=== PATIENT | male | born 1995 | race Caucasian/White ===

== ENCOUNTER 2018-08-07 03:16 | Inpatient (IN) ==
[2018-08-07] MEDS ORDERED: Sod Chloride 0.9% Inj 1,000 ML IV.SIG SCH (03:45)
[2018-08-07 04:31] LABS: Baso # (Auto) 0.1 th/mm3 (0.0-0.2); Baso % (Auto) 0.7 % (0.0-2.0); Eos # (Auto) 0.1 th/mm3 (0.0-0.4); Eos % (Auto) 1.7 % (0.0-4.0); Hematocrit 48.7 % (39.0-51.0); Hemoglobin 16.5 gm/dL (13.0-17.0); Lymph # (Auto) 2.8 th/mm3 (1.0-4.8); Lymph % (Auto) 34.9 % (9.0-44.0); Mean Corpuscular HGB Conc 33.9 % (32.0-36.0); Mean Corpuscular Hemoglobin 27.9 pg (27.0-34.0); Mean Corpuscular Volume 82.4 fL (80.0-100.0); Mono # (Auto) 0.6 th/mm3 (0.0-0.9); Mono % (Auto) 7.2 % (0.0-8.0); Neut # (Auto) 4.4 th/mm3 (1.8-7.7); Neut % (Auto) 55.5 % (16.0-70.0); Platelet Count 262 th/mm3 (150-450); Red Blood Count 5.91 mil/mm3 (4.50-5.90); Red Cell Distribution Width 13.5 % (11.6-17.2)
--- NOTE | 2018-08-07 04:49 | ED ---
HPI General Chief complaint: Alcohol Stated complaint: Syncope Time Seen by Provider: 08/07/18 03:31 Source: EMS Mode of arrival: EMS Limitations: altered mental status History of Present Illness HPI narrative: 22-year-old male came to the emergency room brought in by EMS after he was noticed to be unresponsive in the car by his family. Patient was drinking earlier alcohol. When EMS arrived his GCS was 3. When patient was being transported he started to wake up and answering questions. Upon arrival GCS was 14. Patient started to vomit upon arrival and apologized to the nurse multiple times. Patient has not spoken much to me. The family including his mother arrived later and mentioned that patient had broken up with his girlfriend 2 weeks back. He has history of mitral valve prolapse as per the family. Related Data Home Medications Medication Instructions Recorded Confirmed No Known Home Medications 08/07/18 08/07/18 Allergies Allergy/AdvReac Type Severity Reaction Status Date / Time No Known Allergies Allergy Abdominal Uncoded 08/07/18 03:30 Pain Review of Systems ROS Unobtainable ROS Unobtainable: unobtainable due to mental status [facility] Medical History Medical History Patient denies medical problems (Acute) Surgical History Surgical History S/P heart valve repair (Acute) Social History Social History Smoking Status: Current some day smoker Tobacco Type: Cigarettes How Often Do You Have a Drink Containing Alcohol: 2 to 4 times a month Recent Travel in [facility] within the Last 8 Weeks: No Recent Out of Country Travel within the Last 8 Weeks: No Immunization History Tetanus Immunization: Unsure Exam Narrative Exam Narrative: GENERAL: Intoxicated, opens his eyes upon calling his name but none communicating SKIN: Focused skin assessment warm/dry. HEAD: Atraumatic. Normocephalic. EYES: Pupils equal and round. No scleral icterus. No injection or drainage. ENT: No nasal bleeding or discharge. Mucous membranes pink and moist. NECK: Trachea midline. No JVD. CARDIOVASCULAR: Regular rate and rhythm. No murmur appreciated. RESPIRATORY: No accessory muscle use. Clear to auscultation. Breath sounds equal bilaterally. GASTROINTESTINAL: Abdomen soft, non-tender, nondistended. Hepatic and splenic margins not palpable. MUSCULOSKELETAL: No obvious deformities. No clubbing. No cyanosis. No edema. NEUROLOGICAL: GCS of 13. No obvious cranial nerve deficits. Motor grossly within normal limits. Not communicating currently PSYCHIATRIC: Unable to assess Course Consultations Consultation #1: dr meredith agrees to admit Initial Documented Vital Signs Temperature 98.5 F 08/07/18 03:23 Pulse Rate 78 08/07/18 03:23 Respiratory Rate 26 H 08/07/18 03:23 Blood Pressure 146/101 H 08/07/18 03:23 Pulse Oximetry 100 08/07/18 03:23 Last Documented Vital Signs Temperature 98.5 F 08/07/18 03:23 Pulse Rate 78 08/07/18 03:23 Respiratory Rate 26 H 08/07/18 03:23 Blood Pressure 146/101 H 08/07/18 03:23 Pulse Oximetry 100 08/07/18 03:23 Sign Out Sign Out Data: Patient Sign Out occurred on 08/07/18 at 07:44. Patient's care was discussed, and care was transferred from Karan Daniels to Merna Purvis MD. Sign Out Comment: Alcohol intoxication, initial GCS of 3 when found, follow-up troponin. If troponin is negative patient can be discharged after reassessed. Last updated by Karan Daniels MD at 08/07/18 07:38 Post-Handoff Eval: Signed over to me to follow troponin and reevaluate. Troponin is elevated at 0.09. Patient denies any active chest pain currently but states he was having some a month ago. Here he was having occasional PVCs. He denies any medical history to me and agrees to observation overnight for trending of troponins. Medical Decision Making MDM Narrative Medical decision making narrative: 4:48 AM awaiting for blood test result. Patient is getting IV fluid bolus and Narcan for nausea and vomiting. There are several sober family members and friends present. Awaiting for the alcohol level. 6:42 AM blood test results are significant for alcohol intoxication and hypokalemia. P.o. potassium replacement has been given. Head CT is negative. I was told by the nurse that patient is awake and standing up to urinate. I am comfortable discharging him home at this point given the fact there is sober family member to take him home. 7:32 AM awaiting for troponin result. Case has been signed over to the oncoming ER physician. Medical Screen Exam Complete: Yes Emergency Medical Condition: Yes Lab Data Result diagrams: 08/07/18 03:30 08/07/18 03:30 Lab Results 08/07/18 08/07/18 08/07/18 Range/Units 03:30 03:30 03:30 WBC 8.0 (4.0-11.0) th/mm3 RBC 5.91 H (4.50-5.90) mil/mm3 Hgb 16.5 (13.0-17.0) gm/dL Hct 48.7 (39.0-51.0) % MCV 82.4 (80.0-100.0) fL MCH 27.9 (27.0-34.0) pg MCHC 33.9 (32.0-36.0) % RDW 13.5 (11.6-17.2) % Plt Count 262 (150-450) th/mm3 MPV 9.0 (7.0-11.0) fL Neut % (Auto) 55.5 (16.0-70.0) % Lymph % (Auto) 34.9 (9.0-44.0) % Juncos % (Auto) 7.2 (0.0-8.0) % Eos % (Auto) 1.7 (0.0-4.0) % Baso % (Auto) 0.7 (0.0-2.0) % Neut # (Auto) 4.4 (1.8-7.7) th/mm3 Lymph # (Auto) 2.8 (1.0-4.8) th/mm3 Juncos # (Auto) 0.6 (0.0-0.9) th/mm3 Eos # (Auto) 0.1 (0.0-0.4) th/mm3 Baso # (Auto) 0.1 (0.0-0.2) th/mm3 WBC Differential . Differential Comment Auto diff final Sodium 140 (136-145) meq/L Potassium 3.0 L (3.5-5.1) meq/L Chloride 105 (98-107) meq/L Carbon Dioxide 25.4 (21.0-32.0) meq/L Anion Gap 10 (5-15) meq/L BUN 12 (7-18) mg/dL Creatinine 1.20 (0.60-1.30) mg/dL Estimated GFR Greater than 89 (>89) mL/min Random Glucose 102 (74-106) mg/dL Calcium 8.6 (8.5-10.1) mg/dL Total Bilirubin 0.5 (0.2-1.0) mg/dL AST 20 (15-37) U/L ALT 32 (12-78) U/L Alkaline Phosphatase 41 L (45-117) U/L Troponin I 0.09 H (0.02-0.05) ng/mL Total Protein 8.8 H (6.4-8.2) g/dL Albumin 4.4 (3.4-5.0) g/dL Urine Opiates Screen (Neg) Ur Barbiturates Screen (Neg) Ur Amphetamines Screen (Neg) U Benzodiazepines Scrn (Neg) Urine Cocaine Screen (Neg) U Cannabinoids Screen (Neg) Serum Alcohol 190 H (0-5) mg/dL 08/07/18 Range/Units 06:42 WBC (4.0-11.0) th/mm3 RBC (4.50-5.90) mil/mm3 Hgb (13.0-17.0) gm/dL Hct (39.0-51.0) % MCV (80.0-100.0) fL MCH (27.0-34.0) pg MCHC (32.0-36.0) % RDW (11.6-17.2) % Plt Count (150-450) th/mm3 MPV (7.0-11.0) fL Neut % (Auto) (16.0-70.0) % Lymph % (Auto) (9.0-44.0) % Juncos % (Auto) (0.0-8.0) % Eos % (Auto) (0.0-4.0) % Baso % (Auto) (0.0-2.0) % Neut # (Auto) (1.8-7.7) th/mm3 Lymph # (Auto) (1.0-4.8) th/mm3 Juncos # (Auto) (0.0-0.9) th/mm3 Eos # (Auto) (0.0-0.4) th/mm3 Baso # (Auto) (0.0-0.2) th/mm3 WBC Differential Differential Comment Sodium (136-145) meq/L Potassium (3.5-5.1) meq/L Chloride (98-107) meq/L Carbon Dioxide (21.0-32.0) meq/L Anion Gap (5-15) meq/L BUN (7-18) mg/dL Creatinine (0.60-1.30) mg/dL Estimated GFR (>89) mL/min Random Glucose (74-106) mg/dL Calcium (8.5-10.1) mg/dL Total Bilirubin (0.2-1.0) mg/dL AST (15-37) U/L ALT (12-78) U/L Alkaline Phosphatase (45-117) U/L Troponin I (0.02-0.05) ng/mL Total Protein (6.4-8.2) g/dL Albumin (3.4-5.0) g/dL Urine Opiates Screen Neg (Neg) Ur Barbiturates Screen Neg (Neg) Ur Amphetamines Screen Neg (Neg) U Benzodiazepines Scrn Neg (Neg) Urine Cocaine Screen Neg (Neg) U Cannabinoids Screen Neg (Neg) Serum Alcohol (0-5) mg/dL Imaging Data Radiologist's impression: Head CT 08/07/18 05:38 CONCLUSION: Negative CT Head non contrast. . . ECG Data Attestation: I personally reviewed and interpreted this ECG as follows: Interpretation: Twelve-lead EKG was reviewed by me. Normal sinus rhythm, normal axis, frequent PVCs, J-point elevation. Discharge Plan Discharge Disposition Patient Disposition: ED Admit(ED Internal Use Only) Discharge Condition Condition: Stable Discharge Order Discharge Orders: ED Use Only Admit Order (Routine); Ordered 08/07/18 Ordered By: Merna Purvis Discharge Details Diagnosis: Alcoholic intoxication, Asymptomatic PVCs, Elevated troponin Physicians Team ED Provider: Merna Purvis Primary Care Provider: UNKNOWN, Rxs /Orders / Referrals /Forms Prescriptions: No Action No Known Home Medications RF: 0 Stand Alone Forms: Work Release/Restrictions Discharge Instructions Patient Printed Instructions: Alcohol Intoxication (ED) Status ED Status: Admitted Observation Patient
[2018-08-07 05:24] LABS: Alanine Aminotransferase 32 U/L (12-78); Albumin 4.4 g/dL (3.4-5.0); Anion Gap 10 meq/L (5-15); Aspartate Aminotransferase 20 U/L (15-37); Blood Urea Nitrogen 12 mg/dL (7-18); Calcium 8.6 mg/dL (8.5-10.1); Carbon Dioxide 25.4 meq/L (21.0-32.0); Chloride 105 meq/L (98-107); Glomerular Filtration Rate Greater Than 89 mL/min (>89); Glucose,Random 102 mg/dL (74-106); Sodium 140 meq/L (136-145)
[2018-08-07 05:26] LABS: Alcohol 190 mg/dL (0-5); Alkaline Phosphatase 41 U/L (45-117); Total Protein 8.8 g/dL (6.4-8.2)
--- NOTE | 2018-08-07 06:09 | CT ---
EXAM DATE: 08/07/2018 5:56 AM EST AGE/SEX: 22 years / Male INDICATIONS: Altered mental status. ETOH CLINICAL DATA: This is the patient's initial encounter. Patient reports that signs and symptoms have been present for 1 day and indicates a pain score of Nonresponsive. MEDICAL/SURGICAL HISTORY: None. None. RADIATION DOSE: 56.35 CTDI (mGy) COMPARISON: No prior exams available for comparison. TECHNIQUE: CT of the head without contrast. Using automated exposure control and adjustment of the mA and/or kV according to patient size, radiation dose was kept as low as reasonably achievable to ob tain optimal diagnostic quality images. DICOM format image data is available electronically for revi ew and comparison. FINDINGS: Cerebrum: The ventricles are normal for age. No evidence of midline shift, mass lesion, hemorrhage or acute infarction. No extraaxial fluid collections are seen. Posterior Fossa: The cerebellum and brainstem are intact. The 4th ventricle is midline. The cerebe llopontine angle is unremarkable. Extracranial: The visualized portion of the orbits is intact. Skull: The calvaria is intact. No evidence of skull fracture. CONCLUSION: Negative CT Head non contrast. . . Electronically signed by: Luke Diaz MD Board Certified Radiologist 08/07/2018 6:07 AM EST
[2018-08-07 07:28] LABS: Amphetamine Screen,Urine Neg (Neg); Barbiturate Screen,Urine Neg (Neg); Cannabinoid Screen,Urine Neg (Neg); Cocaine Screen,Urine Neg (Neg)
[2018-08-07 07:33] LABS: Opiate Screen,Urine Neg (Neg)
[2018-08-07] MEDS ORDERED: Haloperidol Inj 5 MG/ML Ampul IV.PUSH PRN (08:14)
[2018-08-07] MEDS ORDERED: LORazepam 1 MG Tablet PO PRN (08:14)
[2018-08-07] MEDS ORDERED: Bisacodyl 10 MG Supp RECTAL PRN (08:15)
[2018-08-07] MEDS ORDERED: Acetaminophen 325 MG Tablet PO PRN (08:15)
[2018-08-07] MEDS ORDERED: Magnesium Oxide 400 MG Tablet PO ONE (08:19)
--- NOTE | 2018-08-07 09:31 | ECG ---
Date Performed: 08/07/2018 Time Performed: 03:21:53 PTAGE: 22 years EKG: Sinus rhythm WITH FREQUENT VENTRICULAR PREMATURE COMPLEXES MINIMAL VOLTAGE CRITERIA FOR LVH, CONSIDER NORMAL VARI ANT ST ELEVATION CONSISTENT WITH INJURY, PERICARDITIS, OR EARLY REPOLARIZATION ABNORMAL ECG NO PREVIOUS TRACING DOCTOR: Florin Roger Interpretating Date/Time 08/07/2018 09:30:06
[2018-08-07] MEDS: KCL 20 mEq/D5W/NaCl 0.45% Inj 1,000 ML IV.CONT SCH ×3 (09:37→20:21)
[2018-08-07] MEDS: Folic Acid 1 MG Tablet PO SCH (09:38)
[2018-08-07] MEDS: Senna/Docusate Sodium 8.6/50 MG Tablet PO SCH ×2 (09:38→20:22)
[2018-08-07] MEDS: Enoxaparin Inj 40 MG/0.4 ML Syringe SQ SCH (09:38)
--- NOTE | 2018-08-07 10:36 | MB ---
cc: Bernardo Marsh MD DATE: 08/07/2018 REASON FOR CONSULTATION: Chest pain, abnormal troponin level. HISTORY OF PRESENT ILLNESS: The patient is a 22-year-old black male originally from [facility] with no major past medical history who was brought in by emergency services after he was found to be unresponsive in his car by his family. The patient had admitted to drinking alcohol earlier in the day. Troponin level was checked and found to be slightly abnormal. For the past 3-4 years, the patient states he has had occasional substernal chest pain described as "sharp," never lasting more than 1-2 seconds, without associated shortness of breath, nausea, or diaphoresis. The last episode of chest pain was a month ago. He denies pleurisy, pedal edema, palpitations, lightheadedness, syncope, near syncope, fevers, recent flu symptoms, paroxysmal nocturnal dyspnea. PAST MEDICAL HISTORY: None. PAST SURGICAL HISTORY: NONE. CARDIAC MEDICATIONS AT HOME: None. FAMILY HISTORY: There is no significant family history of early myocardial infarction. SOCIAL HISTORY: The patient smokes a little less than a pack of cigarettes per day. He drinks alcohol occasionally. He denies illicit drug abuse. REVIEW OF SYSTEMS: As in the history of present illness, otherwise negative or noncontributory. He also denies headache, abdominal pain, melena, dyspepsia, bright red blood per rectum. PHYSICAL EXAMINATION: VITAL SIGNS: His blood pressure 124/62 with a pulse of 67, respirations 17. GENERAL: He is a well-developed, well-nourished, black male, in no acute distress. NECK: Jugular venous pressure is normal. Carotid pulses are 2+ bilaterally and without bruits. CHEST: Clear lungs martinez. CARDIAC: He has a regular rhythm and rate without S3, S4, murmur, or rub. ABDOMEN: He has a soft, nontender abdomen. Bowel sounds are present. There is no definite hepatosplenomegaly. EXTREMITIES: No clubbing, cyanosis, or edema. DIAGNOSTIC DATA: EKG shows normal sinus rhythm with occasional PVC, ST abnormality, consider early repolarization. LABORATORY DATA: Includes normal CBC. Troponin 0.09, BUN 12, creatinine 1.20, potassium 3.0. IMPRESSION: Minimally abnormal troponin level, exceedingly atypical chest pains chronically in this 22-year-old black male with no major past medical history. EKG shows ST changes suggestive of early repolarization. The patient's symptoms have been ongoing for 4 years. In fact, he states his last episode of chest pain was 1 month ago. Clinical suspicion for pulmonary embolism is low. Except for tobacco abuse, he has no major risk factors for coronary disease. RECOMMENDATIONS: Given the exceedingly atypical nature of his chronic infrequent chest pains, recommend no additional cardiac workup at this time. MD MARYJO Pino/ts , 10:02 AM , 10:10 AM MTDEllis
--- NOTE | 2018-08-07 12:54 | ECG ---
Date Performed: 08/07/2018 Time Performed: 10:42:45 PTAGE: 22 years EKG: Sinus rhythm WITH OCCASIONAL VENTRICULAR PREMATURE COMPLEXES POSSIBLE RIGHT VENTRICULAR CONDUCTION DELAY Mild non specific ST elevation possibly representing early repolarization. BORDERLINE ECG No significant gresham e from prior electrocardiogram. DOCTOR: Florin Roger Interpretating Date/Time 08/07/2018 12:52:30
--- NOTE | 2018-08-07 13:35 | P.HPIM ---
History of Present Illness Primary Care Physician: UNKNOWN Chief Complaint: chest pain History of Present Illness: 22-year-old male with PMH of MVP came to the emergency room brought in by EMS after he was noticed to be unresponsive in the car by his family. Patient was drinking earlier alcohol. When EMS arrived his GCS was 3. When patient was being transported he started to wake up and answering questions. Upon arrival GCS was 14. Patient started to vomit upon arrival and apologized to the nurse multiple times. The family arrived later and mentioned that patient had broken up with his girlfriend 2 weeks back. He has history of mitral valve prolapse. The patient says he feels much better after he received meds in the ED. Trops noted elevated trend trops, cardiology consulted. The patient says he has intermittent chest pains, associated sob. No n/v/d/c. No tremors. No abd pain. Does not remember having ECHO done. Patient was counselled extensively regarding EtOH use. Review of Systems Review of Systems: all other systems reviewed are negative [facility] Medical History Medical History Mitral valve prolapse (Acute) Patient denies medical problems (Acute) Surgical History Surgical History S/P heart valve repair (Acute) Social History Social History Smoking Status: Current some day smoker Tobacco Type: Cigarettes How Often Do You Have a Drink Containing Alcohol: 2 to 4 times a month Recent Travel in [facility] within the Last 8 Weeks: No Recent Out of Country Travel within the Last 8 Weeks: No Immunization History Tetanus Immunization: Unsure Medications and Allergies Allergies Allergy/AdvReac Type Severity Reaction Status Date / Time No Known Allergies Allergy Abdominal Uncoded 08/07/18 03:30 Pain Home Medications Medication Instructions Recorded Confirmed Type No Known Home Medications 08/07/18 08/07/18 History Active Medications: Active Medications Acetaminophen (Tylenol) 650 mg PO Q4H PRN PRN Reason: Temp > 100.4 Al Hydroxide/Mg Hydroxide (Milk Of Magnesia Liq) 30 ml PO Q12H PRN PRN Reason: Mild Constipation Bisacodyl (Dulcolax Supp) 10 mg RECTAL DAILY PRN PRN Reason: SEVERE CONSITIPATION Enoxaparin Sodium (Lovenox Inj) 40 mg SQ Q24H [facility] Last Admin: 08/07/18 09:38 Dose: 40 mg Flumazenil (Romazicon Inj) 0.2 mg IV.PUSH Q1M PRN PRN Reason: OVERSEDATION Folic Acid (Folic Acid) 1 mg PO DAILY [facility] Last Admin: 08/07/18 09:38 Dose: 1 mg Haloperidol Lactate (Haldol Inj) 1 mg IV.PUSH Q15M PRN PRN Reason: for severe agitation Potassium Chloride/Dextrose/Sod Cl (D5w/1/2ns + Kcl 20 Meq Inj) 1,000 mls @ 100 mls/hr IV.CONT .Q10H [facility] Last Admin: 08/07/18 09:37 Dose: 100 mls/hr Lactulose (Lactulose Liq) 30 ml PO DAILY PRN PRN Reason: SEVERE CONSITIPATION Lorazepam (Ativan) 1 mg PO Q4H PRN PRN Reason: for CIWA 8-10 Lorazepam (Ativan) 2 mg PO Q2H PRN PRN Reason: for CIWA 11-14 Lorazepam (Ativan Inj) 2 mg IV.PUSH Q2H PRN PRN Reason: for CIWA 11-14 Lorazepam (Ativan Inj) 2 mg IV.PUSH Q1H PRN PRN Reason: for CIWA 15-20 Lorazepam (Ativan Inj) 2 mg IV.PUSH Q15M PRN PRN Reason: for CIWA > 20 Lorazepam (Ativan Inj) 1 mg IV.PUSH Q4H PRN PRN Reason: for CIWA 8-10 Ondansetron HCl (Zofran Inj) 4 mg IV.PUSH Q6H PRN PRN Reason: NAUSEA OR VOMITING Senna/Docusate Sodium (Lore-Colace) 1 tab PO BID [facility] Last Admin: 08/07/18 09:38 Dose: 1 tab Sennosides (Senokot) 17.2 mg PO Q12H PRN PRN Reason: Moderate Constipation Sodium Chloride (Ns Flush) 2 ml IV.FLUSH BID [facility] Last Admin: 08/07/18 09:38 Dose: 2 ml Sodium Chloride (Ns Flush) 2 ml IV.FLUSH PRN PRN PRN Reason: FLUSH AFTER USING IV ACCESS Thiamine HCl (Vitamin B1) 100 mg PO BID [facility] Last Admin: 08/07/18 09:38 Dose: 100 mg Physical Exam Vital signs: Vital Signs 08/07/18 03:23 08/07/18 07:29 08/07/18 08:15 Temperature 98.5 F Pulse Rate 78 65 67 Respiratory Rate 26 H 18 17 Blood Pressure 146/101 H 121/67 124/62 Pulse Oximetry 100 98 95 Intake & Output 08/06/18 08/07/18 08/07/18 18:59 06:59 18:59 Intake Total 1000 / 1000 Balance 1000 / 1000 Weight 80 kg Intake: IV 1000 / 1000 NS Inj 1,000 ML @ 1000 mls/hr 1000 / 1000 IV.SIG BOLUS FUNMILAYO Rx#:[id number] Results Labs CBC & Chem 7: 08/07/18 03:30 08/07/18 03:[address] 08/07/18 05:38 CONCLUSION: Negative CT Head non contrast. . . Caprini VTE Risk Assessment Caprini VTE Risk Assessment: Moderate/High Risk (score >= 2) Caprini Risk Assessment Model: Point Value = 1 Point Value = 2 Point Value = 3 Point Value = 5 Age 41-60 Minor surgery BMI > 25 kg/m2 Swollen legs Varicose veins or History of unexplained or recurrent spontaneous Oral contraceptives or hormone replacement Sepsis (< 1 month) Serious lung disease, including pneumonia (< 1 month) Abnormal pulmonary function Acute myocardial infarction Congestive heart failure (< 1 month) History of inflammatory bowel disease Medical patient at bed rest Age 61-74 Arthroscopic surgery Major open surgery (> 45 min) Laparoscopic surgery (> 45 min) Malignancy Confined to bed (> 72 hours) Immobilizing plaster cast Central venous access Age >= 75 History of VTE Family history of VTE Factor V Leiden Prothrombin [id number] Lupus anticoagulant Anticardiolipin antibodies Elevated serum homocysteine Heparin-induced thrombocytopenia Other congenital or acquired thrombophilia Stroke (< 1 month) Elective arthroplasty Hip, pelvis, or leg fracture Acute spinal cord injury (< 1 month) Prophylaxis Regimen: Total Risk Factor Score Risk Level Prophylaxis Regimen 0-1 Low Early ambulation 2 Moderate Order ONE of the following: *Sequential Compression Device (SCD) *Heparin 5000 units SQ BID 3-4 Higher Order ONE of the following medications: *Heparin 5000 units SQ TID *Enoxaparin/Lovenox 40 mg SQ daily (WT < 150 kg, CrCl > 30 mL/min) *Enoxaparin/Lovenox 30 mg SQ daily (WT < 150 kg, CrCl > 10-29 mL/min) *Enoxaparin/Lovenox 30 mg SQ BID (WT < 150 kg, CrCl > 30 mL/min) AND/OR *Sequential Compression Device (SCD) 5 or more Highest Order ONE of the following medications: *Heparin 5000 units SQ TID (Preferred with Epidurals) *Enoxaparin/Lovenox 40 mg SQ daily (WT < 150 kg, CrCl > 30 mL/min) *Enoxaparin/Lovenox 30 mg SQ daily (WT < 150 kg, CrCl > 10-29 mL/min) *Enoxaparin/Lovenox 30 mg SQ BID (WT < 150 kg, CrCl > 30 mL/min) AND *Sequential Compression Device (SCD) Assessment and Plan Plan Pleasant 22-year-old male with past medical history of mitral valve prolapse complaints of chest pain. He was brought by EMS after he was noticed to be unresponsive in the car by his family. Chest pain Elevated troponins Abnormal EKG History of mitral valve prolapse Found unresponsive EtOH abuse with withdrawals Trend troponins, trending down. EKG also noted up normal with multiple PVCs. Cardiology is consulted 2D echo Placed on telemetry Started on CIWA protocol The patient was counseled extensively regarding alcohol use, patient expressed understanding DVT prophylaxis Lovenox Discussed Condition With: Patient, family at bedside, nurse, ED physician
--- NOTE | 2018-08-07 21:32 | ECG ---
Date Performed: 08/07/2018 Time Performed: 16:26:45 PTAGE: 22 years EKG: Sinus rhythm WITH OCCASIONAL VENTRICULAR PREMATURE COMPLEXES Mild diffuse ST elevation which is slightly more pro minent than prior EKG. Clinical correlation suggested. BORDERLINE ECG PREVIOUS TRACING : 08/07/2018 10.42 DOCTOR: Florin Roger Interpretating Date/Time 08/07/2018 21:30:29
[2018-08-08] MEDS: KCL 20 mEq/D5W/NaCl 0.45% Inj 1,000 ML IV.CONT SCH (06:08)
[2018-08-08 09:06] VITALS: RESP 16
[2018-08-08 09:10] LABS: Baso % (Auto) 0.8 % (0.0-2.0); Eos # (Auto) 0.1 th/mm3 (0.0-0.4); Eos % (Auto) 2.2 % (0.0-4.0); Hematocrit 44.2 % (39.0-51.0); Lymph # (Auto) 2.1 th/mm3 (1.0-4.8); Lymph % (Auto) 35.4 % (9.0-44.0); Mean Corpuscular Hemoglobin 27.8 pg (27.0-34.0); Mean Corpuscular Volume 81.9 fL (80.0-100.0); Mean Platelet Volume 8.7 fL (7.0-11.0); Mono # (Auto) 0.4 th/mm3 (0.0-0.9); Mono % (Auto) 7.4 % (0.0-8.0); Neut # (Auto) 3.2 th/mm3 (1.8-7.7); Neut % (Auto) 54.2 % (16.0-70.0); Platelet Count 220 th/mm3 (150-450); Red Blood Count 5.39 mil/mm3 (4.50-5.90); Red Cell Distribution Width 13.4 % (11.6-17.2); White Blood Count 5.9 th/mm3 (4.0-11.0)
[2018-08-08] MEDS: Senna/Docusate Sodium 8.6/50 MG Tablet PO SCH (09:23)
[2018-08-08] MEDS: Enoxaparin Inj 40 MG/0.4 ML Syringe SQ SCH (09:24)
[2018-08-08] MEDS: Folic Acid 1 MG Tablet PO SCH (09:24)
[2018-08-08 09:31] LABS: Calcium 8.3 mg/dL (8.5-10.1); Carbon Dioxide 26.8 meq/L (21.0-32.0); Potassium 3.6 meq/L (3.5-5.1)
--- NOTE | 2018-08-08 12:30 | ECHRPT ---
Indication: CHEST PAIN CONCLUSIONS Normal left ventricular size. Mild concentric left ventricular hypertrophy. The left ventricular systolic function is hyperdynamic with an estimated ejection fraction in the ra nge of 65- 70%. Mild thickening of the mitral valve leaflets. Mild mitral valve regurgitation. There is mild tricuspid valve regurgitation. The estimated pulmonary arterial pressure is 34 mmHg. Trivial pulmonary valve regurgitation. BP: / HR: Rhythm: Sinus MEASUREMENTS (Male / Female) Normal Values Technical Quality:Fair 2D ECHO LV Diastolic Diameter PLAX 4.8 cm 4.2 - 5.9 / 3.9 - 5.3 cm LV Systolic Diameter PLAX 3.2 cm IVS Diastolic Thickness 1.1 cm 0.6 - 1.0 / 0.6 - 0.9 cm LVPW Diastolic Thickness 1.1 cm 0.6 - 1.0 / 0.6 - 0.9 cm LV Relative Wall Thickness 0.4 RV Internal Dim ED PLAX 1.7 cm LVOT Diameter 2.1 cm Aortic Root Diameter 2.9 cm LA Systolic Diameter LX 2.4 cm 3.0 - 4.0 / 2.7 - 3.8 cm M-MODE AV Cusp Separation MM 2.0 cm DOPPLER AV Peak Velocity 77.5 cm/s AV Peak Gradient 2.4 mmHg AV Mean Gradient 2.0 mmHg AV Velocity Time Integral 15.9 cm LVOT Peak Velocity 85.0 cm/s LVOT Peak Gradient 2.9 mmHg LVOT Velocity Time Integral 17.1 cm AV Area Cont Eq vti 3.7 cm AV Area Cont Eq pk 3.8 cm Mitral E Point Velocity 78.0 cm/s Mitral A Point Velocity 34.1 cm/s Mitral E to A Ratio 2.3 LV E' Lateral Velocity 13.5 cm/s Mitral E to LV E' Lateral Ratio 5.8 LV E' Septal Velocity 9.6 cm/s Mitral E to LV E' Septal Ratio 8.2 TR Peak Velocity 245.0 cm/s TR Peak Gradient 24.0 mmHg Right Atrial Pressure 10.0 mmHg Pulmonary Artery Systolic Pressu 34.0 mmHg Right Ventricular Systolic Press 34.0 mmHg PV Peak Velocity 58.7 cm/s PV Peak Gradient 1.4 mmHg FINDINGS LEFT VENTRICLE Normal left ventricular size. Mild concentric left ventricular hypertrophy. The left ventricular systolic function is hyperdynamic with an estimated ejection fraction in the ra nge of 65- 70%. RIGHT VENTRICLE Normal right ventricular size and systolic function. LEFT ATRIUM The left atrial size is normal. RIGHT ATRIUM The right atrial size is normal. ATRIAL SEPTUM No atrial level shunt is demonstrated by color flow Doppler interrogation. AORTA The aortic root and proximal ascending aorta are not well visualized. MITRAL VALVE Mild thickening of the mitral valve leaflets. Flattening of the anterior leaflet of the mitral valve leaflet. Mild mitral valve regurgitation. AORTIC VALVE Trileaflet aortic valve. No aortic valve stenosis or regurgitation. TRICUSPID VALVE There is mild tricuspid valve regurgitation. The estimated pulmonary arterial pressure is 34 mmHg. PULMONARY VALVE Trivial pulmonary valve regurgitation. VESSELS The inferior vena cava is normal in size. PERICARDIUM No pericardial effusion. Mark Bains MD, FACC, FSCAI (Electronically Signed) Final Date:08 August 2018 12:29
[2018-08-08 13:32] VITALS: BP 123/73; TEMP 97.7; O2SAT 99
[2018-08-08] MEDS ORDERED: Azithromycin Powder 1 GM Packet PO ONE (15:00)
[2018-08-08] MEDS ORDERED: Lidocaine PF 1% Inj 2 ML Ampul OTHER ONE (15:00)
--- NOTE | 2018-08-08 18:24 | P.DS ---
DS: Providers Date of admission: 08/07/18 13:07 Primary care physician: UNKNOWN Consults: 08/07/18 08:18 Consult to Cardiology Routine Consulting Provider: Bernardo Marsh Does the patient have a Bar Tacker who follows them?: No Preferred Asphalt Blender:: Chief Nuclear Medicine Technologist Physician Reason for Consultation: chest pain , elevated trop abnormal EKG Notified:: Service Spoke with:: Luana Date Notified:: 08/07/18 Time Notified:: 08:30 Ordering Provider: ARLINE Brief History from admission: 22-year-old male with PMH of MVP came to the emergency room brought in by EMS after he was noticed to be unresponsive in the car by his family. Patient was drinking earlier alcohol. When EMS arrived his GCS was 3. When patient was being transported he started to wake up and answering questions. Upon arrival GCS was 14. Patient started to vomit upon arrival and apologized to the nurse multiple times. The family arrived later and mentioned that patient had broken up with his girlfriend 2 weeks back. He has history of mitral valve prolapse. The patient says he feels much better after he received meds in the ED. Trops noted elevated trend trops, cardiology consulted. The patient says he has intermittent chest pains, associated sob. No n/v/d/c. No tremors. No abd pain. Does not remember having ECHO done. Patient was counselled extensively regarding EtOH use. DS: Summary Patient was admitted and seen in consultation by cardiology, 2D echocardiogram was obtained. Patients chest pain resolved, his alcohol intoxication resolved, with no evidence of acute withdrawal, and his 2D echocardiogram revealed hyperdynamic left ventricular systolic function with EF of 65-70% with mild concentric LVH and thickened mitral valve with mild mitral valve regurgitation. Cardiology felt the ST changes were suggestive of early repolarization, and that the troponin elevation was not acute coronary syndrome patient's chest pains are very atypical and patient was clinically stable for discharge with outpatient follow-up. Prior to discharge patient states that he recently had sexual activity with someone exposed to chlamydia and so he was treated with azithromycin and Rocephin and cultures were obtained prior to his discharge. Patient was counseled at length regarding alcohol and tobacco cessation and instructed to follow-up with cardiology as needed and [facility] for primary care physician follow-up. Discharge diagnosis Acute alcohol intoxication/alcohol abuse Hypokalemia Atypical chest pain Nonspecific troponin elevation LVH, mitral valve prolapse Chlamydia Nicotine/tobacco abuse Time spent discussing smoking cessation with patient: 3 to 10 minutes Time Spent with Patient Total time spent providing and/or coordinating discharge services: Greater than 30 minutes Status at Discharge Functional status at discharge: independent ambulation Overall status at discharge: patient is progressing back to baseline Quality: VTE Deep Vein Thrombosis/Pulmonary Embolism Present on Admission: No Results Labs on day of discharge: Labs from last 24 hours 08/08/18 08/08/18 08/08/18 16:42 07:13 07:13 WBC 5.9 RBC 5.39 Hgb 15.0 Hct 44.2 MCV 81.9 MCH 27.8 MCHC 34.0 RDW 13.4 Plt Count 220 MPV 8.7 Neut % (Auto) 54.2 Lymph % (Auto) 35.4 [place] % (Auto) 7.4 Eos % (Auto) 2.2 Baso % (Auto) 0.8 Neut # (Auto) 3.2 Lymph # (Auto) 2.1 [place] # (Auto) 0.4 Eos # (Auto) 0.1 Baso # (Auto) 0.0 WBC Differential . Differential Comment Auto diff final Sodium 139 Potassium 3.6 Chloride 106 Carbon Dioxide 26.8 Anion Gap 6 BUN 8 Creatinine 1.03 Estimated GFR 89 Random Glucose 77 Calcium 8.3 L Chlam trachomat DNA PCR Pending N.gonorrhoeae DNA (PCR) Pending Impressions ITS Impressions Head CT 08/07/18 05:38 CONCLUSION: Negative CT Head non contrast. . . Discharge Plan Discharge Disposition Patient Disposition: Discharge Home Discharge Condition Condition: Stable Discharge Order Discharge Orders: Discharge Order (Routine); Ordered 08/08/18 Ordered By: Joanna Hernandez Cardiology Clear for Discharge (Routine); Ordered 08/07/18 Ordered By: Bernardo Marsh Physicians Team Primary Care Provider: UNKNOWN, Attending Provider: Joanna Hernandez Other Providers: Bernardo Marsh Rxs /Orders / Referrals /Forms Prescriptions: No Action No Known Home Medications RF: 0 [facility] - See Instructions ( Please call the physician's office to book the appointment to be seen within [1 week].) Bernardo Marsh MD [Physician] - See Instructions ( Please call the physician's office to book the appointment to be seen within [2 weeks only IF NEEDED].) UNKNOWN, [Primary Care Provider] - See Instructions ([facility] AT [phone] (NEED MEDICAL RECORD INFORMATION)) Stand Alone Forms: Work Release/Restrictions Discharge Instructions Patient Printed Instructions: Alcohol Intoxication (ED) Additional Instructions: DO NOT DRINK ALCOHOL Post Discharge Care Plan Care Plan Goals: Your Health Problems: Goals to Promote Your Health: * To prevent worsening of your condition * To maintain your health at the optimal level Directions to Meet Your Goals: * Take your medications as prescribed * Follow your dietary instruction * Follow activity as directed * Keep your appointments as scheduled * Take your immunizations and boosters as scheduled * If your symptoms worsen call your PCP * If no PCP go to Urgent Care or Emergency Room Smoking is dangerous to your health. Avoid second hand smoke. You may reach the 24-hour crisis hotline for domestic abuse at . Status ED Status: Left Department Discharge Information Discharge Date/Time: 08/08/18 17:36
[2018-08-08 19:16] VITALS: PULSE 62
== END 2018-08-08 17:36 | disposition home or self-care (01) | DRG 313 ==
LOC: NEPC 03:16 → INTOOBSV 08:15 → NEDA 08:15 → OBSVTOIN 13:07 → NEDA 13:43 → N04 14:02
PROVIDERS: ADMIT Internal Medicine; ATTEND Internal Medicine
CPT/HCPCS: 70450; 80048; 80053; 80307; 84484; 85025; 87491; 87591; 90761; 90774; 90784; 93005; 93306; 96361; 96374; 99285; C8952; J0696; J1650; J2405; J3480; J7030